=== PATIENT | male | born 1960 | race Caucasian/White ===

== ENCOUNTER 2020-09-21 23:29 | Observation (INO) | payer BC ==
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
[2020-09-22] MEDS ORDERED: NITROGLYCERIN SL TABS 0.4 MG TAB SUBLINGUAL PRN (01:33)
[2020-09-22] MEDS ORDERED: MORPHINE SULFATE 4 MG/ML SYRINGE IV PRN (01:33)
[2020-09-22] MEDS ORDERED: SODIUM CHLORIDE 0.9% 1,000 ML IV SCH (01:45)
[2020-09-22 04:11] VITALS: TEMP 98.1
[2020-09-22] MEDS ORDERED: TAMSULOSIN 0.4 MG CAP.ER.24H PO SCH ×2 (04:32→21:00)
[2020-09-22] MEDS ORDERED: IBUPROFEN 600 MG TAB PO PRN (04:34)
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
--- NOTE | 2020-09-22 05:14 | XR ---
EXAMINATION TYPE: XR foot complete RT DATE OF EXAM: 09/22/2020 COMPARISON: NONE HISTORY: Injury. Pain. TECHNIQUE: 3 views FINDINGS: Metatarsals appear intact. The toes appear intact. I see no fracture nor dislocation. The t arsal bones are intact. IMPRESSION: Negative right foot exam.
[2020-09-22 05:35] LABS: Basophils % (A) 0 %; Eosinophils % (A) 0 %; HCT 38.2 % (39.0-53.0); HGB 12.7 gm/dL (13.0-17.5); Lymphocytes # (A) 0.9 k/uL (1.0-4.8); Lymphocytes % (A) 10 %; MCH 32.2 pg (25.0-35.0); MCHC 33.3 g/dL (31.0-37.0); MCV 96.8 fL (80.0-100.0); Mean Platelet Volume 6.4; Monocytes # (A) 0.6 k/uL (0-1.0); Monocytes % (A) 7 %; Neutrophils # (A) 7.8 k/uL (1.3-7.7); Neutrophils % (A) 82 %; Platelet Count 252 k/uL (150-450); RBC 3.95 m/uL (4.30-5.90); RDW 12.7 % (11.5-15.5); WBC 9.5 k/uL (3.8-10.6)
[2020-09-22 05:54] LABS: ALT 31 U/L (4-49); AST 34 U/L (17-59); African American GFR (CKD) >90 (>60 ml/min/1.73 sqM); Albumin 4.1 g/dL (3.5-5.0); Alkaline Phosphatase 60 U/L (38-126); Anion Gap 7 mmol/L; Blood Urea Nitrogen 13 mg/dL (9-20); Calcium 9.3 mg/dL (8.4-10.2); Carbon Dioxide 24 mmol/L (22-30); Chloride 106 mmol/L (98-107); Glucose 117 mg/dL (74-99); Magnesium 1.8 mg/dL (1.6-2.3); Non-African American GFR(CKD) >90 (>60 ml/min/1.73 sqM); Potassium 3.9 mmol/L (3.5-5.1); Sodium 137 mmol/L (137-145); Total Bilirubin 0.9 mg/dL (0.2-1.3); Total Protein 6.5 g/dL (6.3-8.2)
[2020-09-22] MEDS ORDERED: LEVOTHYROXINE 25 MCG TAB PO SCH (06:30)
[2020-09-22] MEDS ORDERED: PANTOPRAZOLE 40 MG TABLET PO SCH (07:30)
[2020-09-22] MEDS ORDERED: HEPARIN SODIUM,PORCINE/PF 5,000 UNIT/0.5 ML SYRINGE SQ SCH (08:00)
[2020-09-22 08:54] VITALS: RESP 18
[2020-09-22] MEDS ORDERED: FOLIC ACID 1 MG TAB PO SCH (09:00)
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
[2020-09-22] MEDS ORDERED: METOPROLOL TARTRATE 25 MG TAB PO SCH (10:15)
--- NOTE | 2020-09-22 10:15 | P.PN ---
Progress Note - Text Progress Note Date: 09/22/20 I saw and evaluated the patient independently today. I agree with the documented assessment and plan by my colleague earlier this morning. Pending cardiology clearance for A Fib and final determination on whether pt requires long-term AC. Pending echo. Ortho recs reviewed, CT scan pending to determine need for splint vs boot.
--- NOTE | 2020-09-22 10:18 | CT ---
EXAMINATION TYPE: CT ankle RT wo con DATE OF EXAM: 09/22/2020 COMPARISON: None HISTORY: Right foot and ankle swelling and bruising CT DLP: 315.[address] of the right ankle with reconstruction imaging. TECHNIQUE: Unenhanced CT of the right ankle was performed with bone and soft tissue window settings s ubmitted in the axial coronal and sagittal planes. At a separate workstation 3-D TR imaging was obta ined. FINDINGS: There are chip or avulsion fractures noted to arise from the anterior superior portion of the talus. There is surrounding soft tissue edema. Additional fractures noted involving the anterolateral calcan eus. No additional fractures visible. Soft tissue swelling noted. Ankle mortise is intact. IMPRESSION: 1. Chip or avulsion fractures anterior talus as well as fracture involving the anterior lateral calca neus.
--- NOTE | 2020-09-22 10:19 | XR ---
EXAMINATION TYPE: XR wrist complete LT DATE OF EXAM: 09/22/2020 CLINICAL HISTORY: pain TECHNIQUE: Frontal, lateral and oblique images of the left wrist are obtained. COMPARISON: None. FINDINGS: There is no acute fracture/dislocation evident. The joint spaces appear within normal woodward its. The overlying soft tissue appears unremarkable. IMPRESSION: There is no acute fracture or dislocation seen. ICD 10 NO FRACTURE, INITIAL EVALUATION
--- NOTE | 2020-09-22 10:21 | XR ---
EXAMINATION TYPE: XR hand complete LT DATE OF EXAM: 09/22/2020 CLINICAL HISTORY: pain TECHNIQUE: Frontal, lateral and oblique images of the left hand are obtained. COMPARISON: None. FINDINGS: There is no acute fracture/dislocation evident. The joint spaces appear within normal limi ts. The overlying soft tissue appears unremarkable. IMPRESSION: There is no acute fracture or dislocation. ICD 10 NO FRACTURE, INITIAL EVALUATION
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
[2020-09-22 13:56] VITALS: BP 138/86; PULSE 95
[2020-09-22] MEDS ORDERED: SULFASALAZINE 500 MG PO SCH (17:30)
[2020-09-22] MEDS ORDERED: ATORVASTATIN 20 MG TAB PO SCH (21:00)
[2020-09-23] MEDS ORDERED: LEVOTHYROXINE 50 MCG TAB PO SCH (06:30)
[2020-09-23] MEDS ORDERED: ASPIRIN 81 MG PO SCH (09:00)
[2020-09-23] MEDS ORDERED: ASPIRIN 325 MG TAB PO SCH (09:00)
== END 2020-09-22 14:45 | disposition home or self-care (01) ==
LOC: EC 23:29 → INTOOBSV 09-22 01:33 → 3SCARD 09-22 01:33 → UNDODISIN 09-22 14:45
PROVIDERS: ADMIT Internal Medicine; ATTEND Internal Medicine
DX: I48.0 Paroxysmal atrial fibrillation (principal); S92.151A Displaced avulsion fracture (chip fracture) of right talus, initial encounter for closed fracture; S61.032A Puncture wound without foreign body of left thumb without damage to nail, initial encounter; S80.02XA Contusion of left knee, initial encounter; S40.012A Contusion of left shoulder, initial encounter; S40.011A Contusion of right shoulder, initial encounter; S60.222A Contusion of left hand, initial encounter; S90.02XA Contusion of left ankle, initial encounter; S90.01XA Contusion of right ankle, initial encounter; N40.0 Benign prostatic hyperplasia without lower urinary tract symptoms; E03.9 Hypothyroidism, unspecified; L40.50 Arthropathic psoriasis, unspecified; G47.33 Obstructive sleep apnea (adult) (pediatric); E78.5 Hyperlipidemia, unspecified; Z20.822 Contact with and (suspected) exposure to COVID-19; Z79.82 Long term (current) use of aspirin; Z79.890 Hormone replacement therapy; Z79.899 Other long term (current) drug therapy; X37.1XXA Tornado, initial encounter; Y92.008 Other place in unspecified non-institutional (private) residence as the place of occurrence of the external cause
CPT/HCPCS: 96372; 99285; 93005; 80053; 84443; 83735; 84484; 85025; 87635; 73110; 73130; 73630; 73700; G0378; J1644